=== PATIENT | female | born 1980 | race Caucasian/White ===

== ENCOUNTER → 2017-12-14 | Outpatient (REF) | payer OTHER | LOC: M SFHCCLAY 11:17 | DX: F51.04 Psychophysiologic insomnia (principal); F41.9 Anxiety disorder, unspecified; E61.1 Iron deficiency; E55.9 Vitamin D deficiency, unspecified; Z53.9 Procedure and treatment not carried out, unspecified reason ==

== ENCOUNTER → 2018-01-10 | Outpatient (REF) | payer OTHER ==
[2018-01-11 11:26] LABS: BASO % 0.6 % (0.0-1.0); EOS # 0.1 10^3/uL (0.0-0.50); EOS % 1.3 % (0.0-3.0); HEMATOCRIT 36.4 % (36.0-47.0); HEMOGLOBIN 12.3 g/dl (12.0-16.0); IMMATURE GRANULOCYTE % 0.7 % (0-3.0); LYMPH # 2.4 10^3/uL (1.5-4.5); LYMPH % 35.3 % (24.0-44.0); MEAN CORPUSCULAR HEMOGLOBIN 31.3 pg (27.0-33.0); MEAN CORPUSCULAR HGB CONC 33.8 g/dl (32.0-36.5); MEAN CORPUSCULAR VOLUME 92.6 fl (80.0-96.0); MONO # 0.5 10^3/uL (0.0-0.8); MONO % 7.1 % (0.0-5.0); NEUTROPHILS # 3.8 10^3/uL (1.8-7.7); PLATELET COUNT, AUTOMATED 224 10^3/uL (150-450); RED BLOOD COUNT 3.93 10^6/uL (4.00-5.40); RED CELL DISTRIBUTION WIDTH 12.9 % (11.5-14.5); WHITE BLOOD COUNT 6.9 10^3/uL (4.0-10.0)
[2018-01-11 11:46] LABS: TOTAL 25(OH) VITAMIN D 56.8 NG/ML (30.0-100.0)
[2018-01-11 11:47] LABS: ALBUMIN 3.6 GM/DL (3.2-5.2); ALBUMIN/GLOBULIN RATIO 1.09 (1.00-1.93); ALKALINE PHOSPHATASE 49 U/L (45-117); ALT/SGPT 22 U/L (12-78); ANION GAP 8 MEQ/L (8-16); AST/SGOT 17 U/L (7-37); BILIRUBIN,TOTAL 0.2 MG/DL (0.2-1.0); BLOOD UREA NITROGEN 12 MG/DL (7-18); CALCIUM LEVEL 8.6 MG/DL (8.5-10.1); CARBON DIOXIDE LEVEL 27 MEQ/L (21-32); CHLORIDE LEVEL 105 MEQ/L (98-107); CREATININE FOR GFR 0.58 MG/DL (0.55-1.30); FERRITIN 32 NG/ML (8-252); FREE T4 0.94 NG/DL (0.76-1.46); GLOMERULAR FILTRATION RATE > 60.0 (>60); GLUCOSE, FASTING 103 MG/DL (70-100); IRON (FE) 66 UG/DL (50-170); POTASSIUM SERUM 3.9 MEQ/L (3.5-5.1); SODIUM LEVEL 140 MEQ/L (136-145); THYROID STIMULATING HORMONE 0.935 uIU/ML (0.358-3.740); TOTAL PROTEIN 6.9 GM/DL (6.4-8.2)
== END ==
LOC: M SFHCCLAY 15:30
DX: F51.04 Psychophysiologic insomnia (principal); F41.9 Anxiety disorder, unspecified; E61.1 Iron deficiency; E55.9 Vitamin D deficiency, unspecified

== ENCOUNTER → 2019-02-15 | Outpatient (REF) | payer OTHER ==
[2019-02-15 19:19] LABS: ALBUMIN 3.6 GM/DL (3.2-5.2); ALT/SGPT 23 U/L (12-78); BILIRUBIN,TOTAL 0.2 MG/DL (0.2-1.0); BLOOD UREA NITROGEN 11 MG/DL (7-18); CALCIUM LEVEL 8.6 MG/DL (8.5-10.1); CARBON DIOXIDE LEVEL 30 MEQ/L (21-32); CHLORIDE LEVEL 107 MEQ/L (98-107); CREATININE FOR GFR 0.54 MG/DL (0.55-1.30); FERRITIN 20 NG/ML (8-252); FREE T4 0.96 NG/DL (0.76-1.46); GLOMERULAR FILTRATION RATE > 60.0 (>58); GLUCOSE, FASTING 75 MG/DL (70-100); IRON (FE) 57 UG/DL (50-170); SODIUM LEVEL 140 MEQ/L (136-145); THYROID STIMULATING HORMONE 0.937 uIU/ML (0.358-3.740); TOTAL 25(OH) VITAMIN D 60.6 NG/ML (30.0-100.0); TOTAL PROTEIN 7.3 GM/DL (6.4-8.2)
[2019-02-15 19:43] LABS: BASO # 0.1 10^3/uL (0.0-0.2); BASO % 0.9 % (0.0-1.0); EOS # 0.1 10^3/uL (0.0-0.50); EOS % 1.2 % (0.0-3.0); HEMATOCRIT 39.3 % (36.0-47.0); LYMPH # 2.3 10^3/uL (1.5-4.5); LYMPH % 35.2 % (24.0-44.0); MEAN CORPUSCULAR HEMOGLOBIN 31.9 pg (27.0-33.0); MEAN CORPUSCULAR HGB CONC 33.1 g/dl (32.0-36.5); MEAN CORPUSCULAR VOLUME 96.3 fl (80.0-96.0); MONO # 0.6 10^3/uL (0.0-0.8); MONO % 8.6 % (0.0-5.0); NEUTROPHILS # 3.5 10^3/uL (1.8-7.7); NEUTROPHILS % 53.9 % (36.0-66.0); PLATELET COUNT, AUTOMATED 220 10^3/uL (150-450); RED BLOOD COUNT 4.08 10^6/uL (4.00-5.40); WHITE BLOOD COUNT 6.5 10^3/uL (4.0-10.0)
== END ==
LOC: M SFHCCLAY 11:47
PROVIDERS: ATTEND Nurse Practitioner Family
DX: E61.1 Iron deficiency (principal); E55.9 Vitamin D deficiency, unspecified; F51.04 Psychophysiologic insomnia; F41.9 Anxiety disorder, unspecified
CPT/HCPCS: 80053; 82306; 82728; 83540; 84439; 84443; 85025; G0463

== ENCOUNTER → 2019-02-21 | Outpatient (CLI) | payer OTHER ==
--- NOTE | 2019-02-22 04:52 | REP ---
Clinical: Pelvic pain . Technique: Transabdominal pelvic ultrasound followed by transvaginal examination for better evaluation of the endometrium and adnexa with color Doppler evaluation of the ovaries. Findings: Bladder is unremarkable and measures 7.7 x 5.9 x 3.6 cm . Heterogeneous enlarged uterus measures 9.6 x 5.5 x 7.5 cm. Multiple fibroids are identified including left lower uterine segment intramural fibroid measuring 4.3 cm, posterior fundal fibroid measuring 3.4 cm, anterior lower uterine segment fibroid measuring 3.2 cm, anterior intramural fibroid measuring 4.1 cm, and posterior fundal fibroid measuring 2.2 cm maximal diameter. The endometrial complex measures 11.1 mm thickness. Right ovary is not visualized. Left ovary is normal in appearance and vascularity measuring 2.8 x 2.1 x 2.7 cm with 1.8 cm dominant follicle ; R I = 0.61 . No pelvic fluid or adnexal mass lesion . Impression: 1. enlarged heterogeneous myomatous uterus Electronically Signed by Aditya Valiente MD 02/22/2019 04:43 A
== END ==
LOC: M RAD 14:30
PROVIDERS: ATTEND Nurse Practitioner Family
DX: D25.9 Leiomyoma of uterus, unspecified (principal); N92.1 Excessive and frequent menstruation with irregular cycle

== ENCOUNTER → 2019-08-22 | Outpatient (REF) | payer OTHER ==
[2019-08-22 11:32] LABS: BASO # 0.1 10^3/uL (0.0-0.2); EOS # 0.1 10^3/uL (0.0-0.5); EOS % 1.5 % (0.0-3.0); HEMATOCRIT 40.3 % (36.0-47.0); HEMOGLOBIN 13.1 g/dl (12.0-15.5); LYMPH # 2.2 10^3/uL (1.5-5.0); MEAN CORPUSCULAR HGB CONC 32.5 g/dl (32.0-36.5); MEAN CORPUSCULAR VOLUME 95.3 fl (80.0-96.0); MONO # 0.5 10^3/uL (0.0-0.8); NEUTROPHILS # 2.5 10^3/uL (1.5-8.5); NEUTROPHILS % 47.3 % (36.0-66.0); PLATELET COUNT, AUTOMATED 173 10^3/uL (150-450); RED BLOOD COUNT 4.23 10^6/uL (4.00-5.40); WHITE BLOOD COUNT 5.3 10^3/uL (4.0-10.0)
[2019-08-22 11:54] LABS: ALBUMIN 3.9 GM/DL (3.2-5.2); ALT/SGPT 22 U/L (12-78); BILIRUBIN,TOTAL 0.5 MG/DL (0.2-1.0); BLOOD UREA NITROGEN 11 MG/DL (7-18); CALCIUM LEVEL 8.9 MG/DL (8.5-10.1); CARBON DIOXIDE LEVEL 30 MEQ/L (21-32); CHLORIDE LEVEL 105 MEQ/L (98-107); CREATININE FOR GFR 0.58 MG/DL (0.55-1.30); GLOMERULAR FILTRATION RATE > 60.0 (>58); GLUCOSE, FASTING 85 MG/DL (70-100); IRON (FE) 126 UG/DL (50-170); POTASSIUM SERUM 4.1 MEQ/L (3.5-5.1); SODIUM LEVEL 140 MEQ/L (136-145); TOTAL PROTEIN 7.1 GM/DL (6.4-8.2)
== END ==
LOC: M SFHCCLAY 09:36
PROVIDERS: ATTEND Nurse Practitioner Family
DX: N92.1 Excessive and frequent menstruation with irregular cycle (principal); E55.9 Vitamin D deficiency, unspecified

== ENCOUNTER → 2020-12-02 | Outpatient (REF) | payer OTHER ==
[2020-12-02 17:51] LABS: BASO # 0.1 10^3/uL (0.0-0.2); BASO % 0.9 % (0.0-1.0); EOS # 0.1 10^3/uL (0.0-0.5); EOS % 1.4 % (0.0-3.0); HEMATOCRIT 41.3 % (36.0-47.0); HEMOGLOBIN 13.6 g/dl (12.0-15.5); LYMPH # 2.1 10^3/uL (1.5-5.0); LYMPH % 35.6 % (24.0-44.0); MEAN CORPUSCULAR HEMOGLOBIN 31.3 pg (27.0-33.0); MEAN CORPUSCULAR HGB CONC 32.9 g/dl (32.0-36.5); MEAN CORPUSCULAR VOLUME 94.9 fl (80.0-96.0); MONO # 0.6 10^3/uL (0.0-0.8); MONO % 10.4 % (0.0-8.0); NEUTROPHILS % 51.5 % (36.0-66.0); PLATELET COUNT, AUTOMATED 225 10^3/uL (150-450); RED BLOOD COUNT 4.35 10^6/uL (4.00-5.40); WHITE BLOOD COUNT 5.8 10^3/uL (4.0-10.0)
[2020-12-02 17:53] LABS: ALBUMIN 4.1 GM/DL (3.2-5.2); ALT/SGPT 17 U/L (12-78); BILIRUBIN,TOTAL 0.3 MG/DL (0.2-1.0); BLOOD UREA NITROGEN 20 MG/DL (7-18); CALCIUM LEVEL 9.7 MG/DL (8.5-10.1); CARBON DIOXIDE LEVEL 31 MEQ/L (21-32); CHLORIDE LEVEL 104 MEQ/L (98-107); CREATININE FOR GFR 0.58 MG/DL (0.55-1.30); GLOMERULAR FILTRATION RATE > 60.0 (>58); GLUCOSE, FASTING 85 MG/DL (70-100); IRON (FE) 71 UG/DL (50-170); PERCENT SATURATION 22.6 % (13.2-45.0); POTASSIUM SERUM 4.2 MEQ/L (3.5-5.1); SODIUM LEVEL 140 MEQ/L (136-145); TOTAL IRON BINDING CAPACITY 314 UG/DL (250-450); TOTAL PROTEIN 7.2 GM/DL (6.4-8.2)
[2020-12-02 18:01] LABS: TOTAL 25(OH) VITAMIN D 66.4 NG/ML (30.0-100.0)
== END ==
LOC: M SFHCCLAY 10:55
PROVIDERS: ATTEND Nurse Practitioner Family
DX: F51.04 Psychophysiologic insomnia (principal); F41.0 Panic disorder [episodic paroxysmal anxiety]; E61.1 Iron deficiency; E55.9 Vitamin D deficiency, unspecified; N92.1 Excessive and frequent menstruation with irregular cycle; F41.9 Anxiety disorder, unspecified

== ENCOUNTER → 2021-01-31 | Outpatient (CLI) | payer OTHER ==
[~2021-01-31] MED LIST: BUPR150T12; CLON0.5T2; TRAZ-252
== END ==
LOC: M LABSMTC 10:11
PROVIDERS: ATTEND Anesthesiology
DX: Z01.818 Encounter for other preprocedural examination (principal); Z11.52 Encounter for screening for COVID-19

== ENCOUNTER 2021-02-05 11:51 | Day surgery (SDC) | payer OTHER ==
[~2021-02-05] VITALS: Ht 157.5 cm; Wt 54.0 kg
[~2021-02-05 11:51] MED LIST changes: +LR 1,000 ML IV ONE
[2021-02-05] MEDS ORDERED: fentaNYL 100 MCG/2 ML INJECTION (J3010) As Ordered ONE ×2 (12:04→15:11)
[2021-02-05] MEDS ORDERED: dexameTHASONE 4 MG/ML 1ML VIAL (J1100 PER 1MG) As Ordered ONE (12:04)
[2021-02-05] MEDS ORDERED: KETOROLAC 60MG 2ML VIAL As Ordered ONE (12:04)
[2021-02-05] MEDS ORDERED: LIDOCAINE 2% 100MG/5ML SDV (FOR ANES.) As Ordered ONE (12:04)
[2021-02-05] MEDS ORDERED: propofoL 200 MG/20 ML VIAL As Ordered ONE (12:04)
[2021-02-05] MEDS ORDERED: ONDANSETRON 4MG/2ML VIAL As Ordered ONE (12:04)
[2021-02-05] MEDS ORDERED: MIDAZOLAM INJ 2MG/2ML VIAL (J2250 PER 1MG) As Ordered ONE (12:04)
[2021-02-05 13:04] LABS: HEMATOCRIT 40.4 % (36.0-47.0); HEMOGLOBIN 13.5 g/dl (12.0-15.5); MEAN CORPUSCULAR HEMOGLOBIN 31.5 pg (27.0-33.0); MEAN CORPUSCULAR HGB CONC 33.4 g/dl (32.0-36.5); MEAN CORPUSCULAR VOLUME 94.2 fl (80.0-96.0); PLATELET COUNT, AUTOMATED 227 10^3/uL (150-450); RED BLOOD COUNT 4.29 10^6/uL (4.00-5.40)
--- NOTE | 2021-02-05 13:12 | ROOPDOC ---
[facility] Report Of Operation Report of Operation DATE OF PROCEDURE: 02/05/21 PREOPERATIVE DIAGNOSIS: Abnormal uterine bleeding. POSTOPERATIVE DIAGNOSIS: Abnormal uterine bleeding. PROCEDURE: Hysteroscopy, dilation and curettage with NovaSure endometrial ablation. SURGEON: Blanche Ruvalcaba MD DISTRICT WILDLIFE MANAGER: None. ANESTHESIA: General. ESTIMATED BLOOD LOSS: 5 mL. INTRAVENOUS FLUIDS: 800 mL lactated Ringers solution. URINE: Not obtained. SPECIMENS: Endometrial curettings. OPERATIVE FINDINGS: Patient with a normal appearing endometrial cavity. Bilateral ostia visualized. Cavity dimensions 4.5 x 4.1. Endometrial ablation lasted for 120 seconds at a power of 101. DESCRIPTION OF OPERATION: After informed consent was obtained and written content was reviewed, the patient was brought to the operating room where general anesthesia was obtained. She was then placed in lithotomy position and was prepped and draped in normal sterile fashion. A time out in the operating room was then performed identifying the patient, the procedure to be performed, as well as drug allergies. A bivalved speculum was placed revealing the cervix. The anterior lip of the cervix was grasped with a single toothed tenaculum. The uterus length was then determined. The uterus was then sequentially dilated using Hanks dilators. Sharp curette was then advanced through the cervical os and the uterus was curetted in a 360 degree fashion. The specimen was then obtained and sent to pathology. The hysteroscope was then advanced through the cervical os and the uterine cavity was inspected with the above noted findings. The hysteroscope was then removed. The NovaSure device was then placed through the cervix into the uterus. The uterine length was then obtained. The NovaSure was then deployed with cavity assessment, followed by endometrial ablation that last for 120 seconds. The NovaSure device was then removed from the uterus. The mesh was inspected and noted to be intact. The hysteroscope was then advanced back through the cervical os into the uterus and uterine cavity was inspected with note of desiccation of the endometrium. The hysteroscope was then removed. The single tooth tenaculum was then removed. The tenaculum site noted to be hemostatic. The patient was then taken out of lithotomy position, was awakened from general anesthesia and taken to recovery in stable condition. Counts were correct. BLANCHE RUVALCABA MD. Feb 05, 2021 13:12
[2021-02-05 13:57] LABS: HCG, SERUM QUALITATIVE NEGATIVE (NEGATIVE)
[2021-02-05] MEDS ORDERED: ACETAMINOPHEN 1000MG 100ML IV BTL (OFIRMEV) (J0131 PER 10MG) As Ordered ONE (14:35)
[2021-02-05] MEDS ORDERED: PHENYLephrine 500MCG 5ML (100MCG/ML) SYRINGE As Ordered ONE (14:40)
[2021-02-05] MEDS ORDERED: ePHEDrine SULFATE 25 MG/5 ML(5MG/ML) SYRINGE As Ordered ONE (14:40)
[2021-02-05] MEDS: fentaNYL 100 MCG/2 ML INJECTION (J3010) IV PRN ×4 (15:06→15:58)
[2021-02-05] MEDS ORDERED: ONDANSETRON 4MG/2ML VIAL IV PRN (15:10)
[2021-02-05] MEDS ORDERED: LR 1,000 ML IV SCH (15:10)
[2021-02-05] MEDS ORDERED: PERCOCET 5MG/325MG TAB PO PRN (15:15)
[2021-02-05] MEDS: oxyCODONE 5MG TAB PO PRN ×2 (15:25→15:56)
[2021-02-05 16:50] VITALS: BP 110/57
[2021-02-05] MEDS ORDERED: KETOROLAC 30 MG/ML 1ML VIAL IV SCH (21:00)
== END 2021-02-05 16:50 | disposition home or self-care (01) ==
LOC: M SDC 11:51
PROVIDERS: ATTEND Obstetrics & Gynecology
DX: N85.8 Other specified noninflammatory disorders of uterus (principal); F41.9 Anxiety disorder, unspecified; Z79.899 Other long term (current) drug therapy; N93.9 Abnormal uterine and vaginal bleeding, unspecified
CPT/HCPCS: 36415; 58563; 84703; 85027; 86850; 86900; 86901; 88305; J0131; J1100; J1885; J2250; J2370; J2405; J3010

== ENCOUNTER → 2021-09-24 | Outpatient (CLI) | payer OTHER ==
[~2021-09-24] MED LIST changes: -LR 1,000 ML IV ONE
== END ==
LOC: M WHC 13:51
PROVIDERS: ATTEND Obstetrics & Gynecology
DX: Z12.31 Encounter for screening mammogram for malignant neoplasm of breast (principal); Z53.9 Procedure and treatment not carried out, unspecified reason

== ENCOUNTER → 2021-09-24 | Outpatient (REF) | payer OTHER | LOC: M SFHCWAGY 17:13 | PROVIDERS: ATTEND Obstetrics & Gynecology | DX: Z12.4 Encounter for screening for malignant neoplasm of cervix (principal) ==

== ENCOUNTER → 2022-02-19 | Outpatient (REF) | payer OTHER ==
[2022-02-19 17:17] LABS: BASO # 0.1 10^3/uL (0.0-0.2); BASO % 1.1 % (0.0-1.0); EOS # 0.1 10^3/uL (0.0-0.5); EOS % 1.3 % (0.0-3.0); HEMOGLOBIN 13.3 g/dl (12.0-15.5); LYMPH % 41.6 % (24.0-44.0); MEAN CORPUSCULAR HEMOGLOBIN 32.3 pg (27.0-33.0); MEAN CORPUSCULAR HGB CONC 33.3 g/dl (32.0-36.5); MEAN CORPUSCULAR VOLUME 97.1 fl (80.0-96.0); MONO # 0.4 10^3/uL (0.0-0.8); MONO % 9.2 % (2.0-8.0); NEUTROPHILS # 2.2 10^3/uL (1.5-8.5); NEUTROPHILS % 46.6 % (36.0-66.0); PLATELET COUNT, AUTOMATED 209 10^3/uL (150-450); RED BLOOD COUNT 4.12 10^6/uL (4.00-5.40); WHITE BLOOD COUNT 4.7 10^3/uL (4.0-10.0)
[2022-02-19 17:18] LABS: ALBUMIN 4.2 GM/DL (3.2-5.2); ALT/SGPT 17 U/L (12-78); BILIRUBIN,TOTAL 0.4 MG/DL (0.2-1.0); BLOOD UREA NITROGEN 15 MG/DL (7-18); CALCIUM LEVEL 9.9 MG/DL (8.5-10.1); CARBON DIOXIDE LEVEL 29 MEQ/L (21-32); CHLORIDE LEVEL 107 MEQ/L (98-107); CHOLESTEROL LEVEL 187 MG/DL (<200); CHOLESTEROL RISK RATIO 2.921 (<5); CREATININE FOR GFR 0.58 MG/DL (0.55-1.30); FREE T4 0.92 NG/DL (0.76-1.46); GLOMERULAR FILTRATION RATE > 60.0 (>58); GLUCOSE, FASTING 80 MG/DL (70-100); HDL CHOLESTEROL 64 MG/DL (>40); IRON (FE) 88 UG/DL (50-170); LDL CHOLESTEROL 111 MG/DL (<100); NON-HDL-C 123 MG/DL; PERCENT SATURATION 28.8 % (13.2-45.0); POTASSIUM SERUM 4.3 MEQ/L (3.5-5.1); SODIUM LEVEL 141 MEQ/L (136-145); TOTAL IRON BINDING CAPACITY 306 UG/DL (250-450); TOTAL PROTEIN 7.1 GM/DL (6.4-8.2); TRIGLYCERIDES LEVEL 60 MG/DL (<150)
== END ==
LOC: M SFHCCLAY 10:19
PROVIDERS: ATTEND Nurse Practitioner Family
DX: F51.04 Psychophysiologic insomnia (principal); F41.9 Anxiety disorder, unspecified; E55.9 Vitamin D deficiency, unspecified; F41.0 Panic disorder [episodic paroxysmal anxiety]; E61.1 Iron deficiency; N92.1 Excessive and frequent menstruation with irregular cycle; Z13.220 Encounter for screening for lipoid disorders

== ENCOUNTER → 2022-03-27 | Outpatient (CLI) | payer OTHER | LOC: M WHC 09:56 | PROVIDERS: ATTEND Obstetrics & Gynecology | DX: N64.4 Mastodynia (principal) | CPT/HCPCS: 76642; 77066; G0279 ==

== ENCOUNTER → 2022-08-02 | Outpatient (CLI) | payer OTHER ==
[~2022-08-02] MED LIST changes: -BUPR150T12; +BUPR150T12 PO; +MULT-90 PO; -TRAZ-252; +TRAZ-252 PO; +VITA100093 PO
== END ==
LOC: M LABSMTC 11:29
PROVIDERS: ATTEND Anesthesiology
DX: Z01.818 Encounter for other preprocedural examination (principal); Z11.52 Encounter for screening for COVID-19

== ENCOUNTER 2022-08-05 06:10 | Day surgery (SDC) | payer OTHER ==
[~2022-08-05] VITALS: Ht 157.5 cm; Wt 50.3 kg
[~2022-08-05 06:10] MED LIST changes: -CLON0.5T2; +CLON0.5T2 PO; +ceFAZolin SOD 2 GM in IV 1 EA IV ONE
[2022-08-05] MEDS ORDERED: LR 1,000 ML IV SCH ×2 (06:35→10:05)
[2022-08-05] MEDS ORDERED: OXYC1TAB23 PO (06:36)
[2022-08-05] MEDS ORDERED: APPL300T4 PO (06:36)
[2022-08-05] MEDS ORDERED: PHEN-501 PO (06:36)
[2022-08-05] MEDS ORDERED: IBUP80TA (06:36)
[2022-08-05 07:06] LABS: HEMATOCRIT 37.8 % (36.0-47.0); HEMOGLOBIN 12.7 g/dl (12.0-15.5); MEAN CORPUSCULAR HEMOGLOBIN 31.9 pg (27.0-33.0); MEAN CORPUSCULAR HGB CONC 33.6 g/dl (32.0-36.5); PLATELET COUNT, AUTOMATED 204 10^3/uL (150-450); RED BLOOD COUNT 3.98 10^6/uL (4.00-5.40); WHITE BLOOD COUNT 5.2 10^3/uL (4.0-10.0)
[2022-08-05] MEDS ORDERED: BUPIVACAINE HCL 0.25% 30ML VIAL As Ordered ONE (07:13)
[2022-08-05] MEDS ORDERED: METHYLENE BLUE 0.5% (5MG/ML) 10 ML AMP (PROVAYBLUE) As Ordered ONE (07:13)
[2022-08-05] MEDS ORDERED: HYDROmorphone HCL 2MG/ML 1ML VIAL As Ordered ONE (08:02)
[2022-08-05] MEDS ORDERED: PHENYLephrine 500MCG 5ML (100MCG/ML) SYRINGE As Ordered ONE (08:02)
[2022-08-05] MEDS ORDERED: fentaNYL 250 MCG/5 ML INJECTION As Ordered ONE (08:02)
[2022-08-05] MEDS ORDERED: SUGAMMADEX SODIUM 500 MG/5 ML VIAL (BRIDION) As Ordered ONE (08:02)
[2022-08-05] MEDS ORDERED: KETOROLAC 60MG 2ML VIAL As Ordered ONE (08:02)
[2022-08-05] MEDS ORDERED: LIDOCAINE 2% 100MG/5ML SDV (FOR ANES.) As Ordered ONE (08:02)
[2022-08-05] MEDS ORDERED: dexameTHASONE 4 MG/ML 1ML VIAL (J1100 PER 1MG) As Ordered ONE (08:02)
[2022-08-05] MEDS ORDERED: ACETAMINOPHEN 1000MG 100ML IV BTL (OFIRMEV) (J0131 PER 10MG) As Ordered ONE (08:02)
[2022-08-05] MEDS ORDERED: propofoL 200 MG/20 ML VIAL As Ordered ONE ×2 (08:02→09:37)
[2022-08-05] MEDS ORDERED: ONDANSETRON 4MG 2ML VIAL As Ordered ONE (08:02)
[2022-08-05] MEDS ORDERED: ROCURONIUM BROMIDE 50 MG/5 ML VIAL As Ordered ONE (08:02)
[2022-08-05] MEDS ORDERED: METOCLOPRAMIDE INJ 10MG/2ML VIAL (J2765 PER 1) As Ordered ONE (08:02)
[2022-08-05] MEDS ORDERED: MIDAZOLAM INJ 2MG/2ML VIAL (J2250 PER 1MG) As Ordered ONE (08:02)
[2022-08-05] MEDS ORDERED: BUPR300T92 PO (08:32)
[2022-08-05] MEDS ORDERED: GLYCOPYRROLATE INJ 0.2 MG/ML 2 ML VIAL As Ordered ONE (08:33)
[2022-08-05] MEDS ORDERED: HOME MED LIST COMPLETE! XX SCH (08:35)
[2022-08-05] MEDS ORDERED: ONDANSETRON 4MG 2ML VIAL IV PRN (10:05)
[2022-08-05] MEDS ORDERED: fentaNYL 100 MCG/2 ML INJECTION IV PRN (10:05)
[2022-08-05] MEDS: oxyCODONE 5MG TAB PO PRN ×2 (10:58→11:28)
[2022-08-05] MEDS: MORPHINE 2 MG/ML 1ML VIAL IV PRN ×2 (10:59→11:08)
[2022-08-05 12:28] VITALS: BP 104/58
[2022-08-05] MEDS ORDERED: PERCOCET 5MG/325MG TAB PO PRN (13:00)
[2022-08-05] MEDS ORDERED: KETOROLAC 30 MG/ML 1ML VIAL IV SCH (15:00)
== END 2022-08-05 12:53 | disposition home or self-care (01) ==
LOC: M SDC 06:10
PROVIDERS: ATTEND Obstetrics & Gynecology
DX: D25.9 Leiomyoma of uterus, unspecified (principal); N85.00 Endometrial hyperplasia, unspecified; N93.9 Abnormal uterine and vaginal bleeding, unspecified; R10.2 Pelvic and perineal pain; Z91.030 Bee allergy status
CPT/HCPCS: 36415; 58571; 81025; 85027; 86850; 86900; 86901; 88307; J0131; J0690; J1100; J1170; J1885; J2250; J2270; J2370; J2405; J2765; J3010; S2900